=== PATIENT | female | born 1940 | race Caucasian/White ===

== ENCOUNTER 2016-09-12 18:48 | Emergency (ER) | payer MEDICARE, MEDICAID ==
[~2016-09-12] VITALS: Ht 152.4 cm; Wt 68.2 kg
[2016-09-12] MEDS ORDERED: TIMO25OPD (18:57)
[2016-09-12] MEDS ORDERED: ASPI81CH PO (18:57)
[2016-09-12] MEDS ORDERED: POTA20TA6 (18:57)
[2016-09-12] MEDS ORDERED: SIMV80TA (18:57)
[2016-09-12] MEDS ORDERED: METO50TA7 (18:57)
[2016-09-12] MEDS ORDERED: PERCOCET 5MG/325MG TAB PO ONE (19:45)
[2016-09-12] MEDS ORDERED: LIDOCAINE 2% MDV 20 ML VIAL SC ONE (20:45)
[2016-09-12] MEDS ORDERED: NORCOTAB PO (21:57)
[2016-09-12 22:15] VITALS: BP 152/82
--- NOTE | 2016-09-13 07:44 | REP ---
Left wrist four views: Comparison is from 12:44 p.m. earlier today. There is a transverse fracture of the distal radius with dorsal angulation of the distal fracture fragment. There is a fracture of the ulnar styloid. Findings are unchanged from the comparison study. The carpal joint spaces are symmetric. No calcifications or foreign bodies. Signed by Javi Boateng MD 09/13/2016 07:35 A
--- NOTE | 2016-09-13 12:42 | ER ---
DATE OF CONSULTATION: 09/12/2016 Chief complaint is left wrist pain and deformity. HISTORY OF PRESENT ILLNESS: The patient fell off the examination table at her doctor's office this morning. Presented for evaluation right away with isolated complaint of left wrist pain and deformity. I was consulted by the emergency room (ER) staff her for evaluation. PAST MEDICAL HISTORY: Significant for cardiac disease. She did have a previous heart surgery for which she is stable and was recently completing stable followup with her make up operator. Also a history of diabetes, hypertension, cerebral aneurysm, cerebral stents. NO KNOWN DRUG ALLERGIES. EXAMINATION: An awake, alert and oriented times three, well appearing female, in no acute distress, appropriately dressed and well nourished. Head is normocephalic, atraumatic. Extraocular muscles are intact. Focused examination of the left upper extremity there is swelling and deformity about the left wrist joint The skin is intact distally. She has less than 2 seconds capillary refill with sensation intact to light touch on all of her fingertips grossly, neurologically intact in radial, median and ulnar distribution. The compartments are soft. The ipsilateral hand, elbow is grossly atraumatic. X-rays of the left wrist show a comminuted displaced distal radius fracture with ulnar styloid component. There does appear to be an articular component just as well. Assessment is left wrist fracture as above. PLAN: Discussed with the patient treatment options. All of her questions were answered and she did elect to go forward with left wrist closed reduction under hematoma block and did sign the consent for the procedure in my presence. Using sterile technique, I gave a hematoma block with satisfactory effect. Next, I performed a gentle closed reduction and she was then placed in a well padded Sugar-Tong splint. Following this, she remained fully neurovascularly intact into her left hand much more comfortable using her fingers at this time. Postreduction x-rays in the splint show slight interval improvement in the alignment and radial height. Plan at this time is that she may be discharged to home, followup as soon as possible with the orthopedics clinic within the next few days for repeat examination. Counseled regarding appropriate care of the splint and appropriate neurovascular monitoring of her left hand. She does understand that. All of her questions were answered and she is satisfied with the treatment at this time.
--- NOTE | 2016-09-13 17:18 | REP ---
Left wrist post reduction AP and lateral views: There is a plaster splint applied to the Collies' fracture of the distal radius and fracture of the ulnar styloid. There is no interval position change from the pre splint films. Signed by Javi Boateng MD 09/13/2016 05:10 P
== END 2016-09-12 22:39 | disposition home or self-care (01) ==
LOC: M ED 18:48
DX: S52.512A Displaced fracture of left radial styloid process, initial encounter for closed fracture (principal); I10 Essential (primary) hypertension; I25.2 Old myocardial infarction; E11.9 Type 2 diabetes mellitus without complications; E78.4 Other hyperlipidemia; W08.XXXA Fall from other furniture, initial encounter; Y92.531 Health care provider office as the place of occurrence of the external cause; Y93.89 Activity, other specified; Y99.9 Unspecified external cause status

== ENCOUNTER → 2016-12-07 | Outpatient (REF) | payer MEDICARE, MEDICAID ==
[~2016-12-07] MED LIST: ASPI81CH PO; METO50TA7; NORCOTAB PO; POTA20TA6; SIMV80TA; TIMO25OPD
== END ==
LOC: M SFHCLERA 14:52
PROVIDERS: ATTEND Family Medicine
DX: E11.65 Type 2 diabetes mellitus with hyperglycemia (principal); E55.9 Vitamin D deficiency, unspecified

== ENCOUNTER → 2017-02-21 | Outpatient (CLI) | payer MEDICARE, MEDICAID ==
[2017-02-21 18:38] LABS: ANION GAP 6 MEQ/L (8-16); BLOOD UREA NITROGEN 18 MG/DL (7-18); CALCIUM LEVEL 8.8 MG/DL (8.8-10.2); CARBON DIOXIDE LEVEL 30 MEQ/L (21-32); CHLORIDE LEVEL 105 MEQ/L (98-107); CREATININE FOR GFR 0.72 MG/DL (0.55-1.02); GLOMERULAR FILTRATION RATE > 60.0 (>39); GLUCOSE, FASTING 176 MG/DL (83-110); POTASSIUM SERUM 4.1 MEQ/L (3.5-5.1); SODIUM LEVEL 141 MEQ/L (136-145)
== END ==
LOC: M LRY 12:42
DX: I10 Essential (primary) hypertension (principal)
CPT/HCPCS: 80048

== ENCOUNTER → 2017-09-25 | Outpatient (REF) | payer MEDICARE, MEDICAID ==
[2017-09-25 17:44] LABS: ESTIMATED AVERAGE GLUCOSE 171 MG/DL (60-110); HEMOGLOBIN A1c 7.6 %
[2017-09-25 17:45] LABS: ALBUMIN 3.3 GM/DL (3.2-5.2); ALBUMIN/GLOBULIN RATIO 1.06 (1.00-1.93); ALKALINE PHOSPHATASE 98 U/L (45-117); ALT/SGPT 25 U/L (12-78); ANION GAP 7 MEQ/L (8-16); AST/SGOT 19 U/L (7-37); BILIRUBIN,TOTAL 0.3 MG/DL (0.2-1.0); BLOOD UREA NITROGEN 20 MG/DL (7-18); CALCIUM LEVEL 8.7 MG/DL (8.8-10.2); CARBON DIOXIDE LEVEL 29 MEQ/L (21-32); CHLORIDE LEVEL 109 MEQ/L (98-107); CHOLESTEROL LEVEL 140 MG/DL (<200); CHOLESTEROL RISK RATIO 3.333 (<5); CREATININE FOR GFR 0.82 MG/DL (0.55-1.30); GLOMERULAR FILTRATION RATE > 60.0 (>39); GLUCOSE, FASTING 114 MG/DL (70-100); HDL CHOLESTEROL 42 MG/DL (>40); LDL CHOLESTEROL 68.2 MG/DL (<100); NON-HDL-C 98 MG/DL; POTASSIUM SERUM 4.1 MEQ/L (3.5-5.1); SODIUM LEVEL 145 MEQ/L (136-145); THYROID STIMULATING HORMONE 0.795 uIU/ML (0.358-3.740); TOTAL PROTEIN 6.4 GM/DL (6.4-8.2); TRIGLYCERIDES LEVEL 149 MG/DL (<150)
[2017-09-25 17:50] LABS: BASO # 0.1 10^3/uL (0.0-0.2); EOS # 0.3 10^3/uL (0.0-0.50); EOS % 3.4 % (0.0-3.0); HEMATOCRIT 45.4 % (36.0-47.0); HEMOGLOBIN 15.3 g/dl (12.0-15.5); IMMATURE GRANULOCYTE % 0.4 % (0-3.0); LYMPH # 2.6 10^3/uL (1.5-4.5); LYMPH % 33.7 % (24.0-44.0); MEAN CORPUSCULAR HEMOGLOBIN 30.4 pg (27.0-33.0); MEAN CORPUSCULAR HGB CONC 33.7 g/dl (32.0-36.5); MEAN CORPUSCULAR VOLUME 90.3 fl (80.0-96.0); MONO # 0.6 10^3/uL (0.0-0.8); MONO % 7.3 % (0.0-5.0); NEUTROPHILS # 4.2 10^3/uL (1.8-7.7); NEUTROPHILS % 54.2 % (36.0-66.0); PLATELET COUNT, AUTOMATED 190 10^3/uL (150-450); RED BLOOD COUNT 5.03 10^6/uL (4.00-5.40); WHITE BLOOD COUNT 7.7 10^3/uL (4.0-10.0)
[2017-09-25 18:09] LABS: MALB URINE SIEMENS 52.4 MG/L; MAU/CREAT RATIO 28.1 MCG/MG (0.0-30.0)
== END ==
LOC: M SFHCLERA 14:14
DX: E11.65 Type 2 diabetes mellitus with hyperglycemia (principal)
CPT/HCPCS: 84443

== ENCOUNTER 2018-03-29 11:10 | Emergency (ER) | payer MEDICARE, MEDICAID ==
[~2018-03-29] VITALS: Ht 152.4 cm; Wt 59.1 kg
[~2018-03-29 11:10] MED LIST changes: -SIMV80TA; +SIMV80TA13
[2018-03-29] MEDS ORDERED: LOSA100T50 (11:18)
[2018-03-29] MEDS ORDERED: ATOR80TA59 (11:18)
[2018-03-29] MEDS ORDERED: AMLO5TAB6 (11:18)
[2018-03-29] MEDS ORDERED: METO100T5 (11:18)
[2018-03-29] MEDS ORDERED: METF-839 (11:19)
[2018-03-29] MEDS ORDERED: MORPHINE 4 MG/ML 1ML VIAL/SYRINGE (J2270) IV ONE (12:00)
[2018-03-29] MEDS ORDERED: ONDANSETRON 4MG/2ML VIAL (J2405) IV ONE (12:00)
[2018-03-29 12:18] LABS: BASO # 0.1 10^3/uL (0.0-0.2); BASO % 0.6 % (0.0-1.0); EOS # 0.1 10^3/uL (0.0-0.50); EOS % 0.4 % (0.0-3.0); HEMATOCRIT 48.3 % (36.0-47.0); LYMPH # 1.2 10^3/uL (1.5-4.5); LYMPH % 10.1 % (24.0-44.0); MEAN CORPUSCULAR HGB CONC 33.1 g/dl (32.0-36.5); MEAN CORPUSCULAR VOLUME 90.4 fl (80.0-96.0); MONO # 0.4 10^3/uL (0.0-0.8); MONO % 3.5 % (0.0-5.0); NEUTROPHILS # 9.9 10^3/uL (1.8-7.7); NEUTROPHILS % 84.4 % (36.0-66.0); PLATELET COUNT, AUTOMATED 162 10^3/uL (150-450); RED BLOOD COUNT 5.34 10^6/uL (4.00-5.40); WHITE BLOOD COUNT 11.8 10^3/uL (4.0-10.0)
--- NOTE | 2018-03-29 12:45 | REP ---
LEFT HUMERUS, TWO VIEWS: Two views of the left humerus performed. There is a comminuted fracture of the proximal humerus in the region of the neck of the humerus. There is mild medial displacement of the shaft. No other acute fracture or dislocation is seen of the visualized osseous structures. Electronically Signed by Javi Osborn MD 03/29/2018 04:02 P
[2018-03-29 12:49] LABS: BLOOD UREA NITROGEN 17 MG/DL (7-18); CALCIUM LEVEL 8.4 MG/DL (8.8-10.2); CARBON DIOXIDE LEVEL 27 MEQ/L (21-32); CHLORIDE LEVEL 105 MEQ/L (98-107); CREATININE FOR GFR 0.77 MG/DL (0.55-1.30); GLOMERULAR FILTRATION RATE > 60.0 (>39); GLUCOSE, FASTING 331 MG/DL (70-100); POTASSIUM SERUM 4.3 MEQ/L (3.5-5.1); SODIUM LEVEL 140 MEQ/L (136-145)
[2018-03-29] MEDS ORDERED: MIRA3350 PO (13:08)
[2018-03-29] MEDS ORDERED: ONDA4TAB6 PO (13:08)
[2018-03-29] MEDS ORDERED: PERC5TAB12 PO (13:08)
[2018-03-29] MEDS ORDERED: COLA100C5 PO (13:08)
[2018-03-29 13:19] VITALS: BP 200/90
--- NOTE | 2018-03-29 13:27 | REP ---
SINGLE VIEW LEFT SHOULDER: Single Y view of the left shoulder was performed. The humeral head is well aligned with the glenoid. There is an adjacent comminuted fracture of the humeral neck. Electronically Signed by Javi Osborn MD 03/29/2018 04:02 P
== END 2018-03-29 13:38 | disposition home or self-care (01) ==
LOC: M ED 11:10
DX: S42.202A Unspecified fracture of upper end of left humerus, initial encounter for closed fracture (principal); W01.0XXA Fall on same level from slipping, tripping and stumbling without subsequent striking against object, initial encounter; Y92.019 Unspecified place in single-family (private) house as the place of occurrence of the external cause; I25.2 Old myocardial infarction; I10 Essential (primary) hypertension; E11.9 Type 2 diabetes mellitus without complications
CPT/HCPCS: 36415; 73020; 73060; 80048; 85025; 96374; 96375; 99284; J2270; J2405

== ENCOUNTER 2018-04-01 05:23 | Emergency (ER) | payer MEDICARE, MEDICAID ==
[~2018-04-01] VITALS: Ht 152.4 cm; Wt 59.1 kg
[~2018-04-01 05:23] MED LIST changes: +AMLO5TAB6; +ATOR80TA59; +COLA100C5 PO; +LOSA100T50; +METF-839; +METO100T5; +MIRA3350 PO; +ONDA4TAB6 PO; +PERC5TAB12 PO
[2018-04-01] MEDS ORDERED: PERCOCET 5MG/325MG TAB PO ONE (06:15)
[2018-04-01 07:54] VITALS: BP 180/90
== END 2018-04-01 08:11 | disposition home or self-care (01) ==
LOC: M ED 05:23
DX: S42.202A Unspecified fracture of upper end of left humerus, initial encounter for closed fracture (principal); W01.0XXA Fall on same level from slipping, tripping and stumbling without subsequent striking against object, initial encounter; Y92.098 Other place in other non-institutional residence as the place of occurrence of the external cause; I10 Essential (primary) hypertension; E11.9 Type 2 diabetes mellitus without complications; I25.2 Old myocardial infarction; I67.1 Cerebral aneurysm, nonruptured; Z85.3 Personal history of malignant neoplasm of breast; F17.200 Nicotine dependence, unspecified, uncomplicated; Z79.899 Other long term (current) drug therapy; Z79.82 Long term (current) use of aspirin; Z79.84 Long term (current) use of oral hypoglycemic drugs